=== PATIENT | female | born 1990 | race Caucasian/White ===

== ENCOUNTER 2019-01-07 12:15 | Inpatient (IN) | payer MEDICAID ==
[2019-01-07] MEDS: LACTATED RINGER'S 1,000 ML IV (17:43)
[2019-01-07] MEDS: AMPICILLIN 2 GM/NS (PMX) 100 ML IV (17:43)
[2019-01-07 17:48] LABS: ADD MAN DIFF? NO
[2019-01-07 17:54] LABS: BASOPHILS % 0.4 % (0.0-2.0); EOSINOPHILS % 0.3 % (0.0-7.0); HEMATOCRIT 38.6 % (37.0-47.0); HEMOGLOBIN 12.8 g/dl (12.0-16.0); LYMPHOCYTES # 2.8 10^3/ul (0.8-2.9); LYMPHOCYTES % 25.3 % (15.0-51.0); MEAN CORPUSCULAR HEMOGLOBIN 30.5 pg (29.0-33.0); MEAN CORPUSCULAR HGB CONC 33.2 g/dl (32.0-37.0); MEAN CORPUSCULAR VOLUME 91.9 fl (82.0-101.0); MEAN PLATELET VOLUME 10.2 fl (7.4-10.4); MONOCYTE # 0.6 10^3/ul (0.3-0.9); MONOCYTES % 5.9 % (0.0-11.0); NEUTROPHIL # 7.3 10^3/ul (1.6-7.5); NEUTROPHILS % 67.6 % (39.0-77.0); PLATELET COUNT 183 10^3/UL (140-415); RED CELL DISTRIBUTION WIDTH 17.3 % (11.5-14.5)
[2019-01-07 17:54] LABS: WHITE BLOOD COUNT 10.9 10^3/ul (4.8-10.8)
[2019-01-07] MEDS ORDERED: BUTORPHANOL 2 MG INJ IV (18:00)
[2019-01-07] MEDS ORDERED: CARBOPROST 250 MCG INJ IM (18:00)
[2019-01-07] MEDS ORDERED: OXYTOCIN 30 UNITS/LR 500 ML IV (18:00)
[2019-01-07] MEDS ORDERED: LIDOCAINE 1% (MPF) 30 ML INJ INJ (18:00)
[2019-01-07 18:14] LABS: INR 0.84; PROTIME 11.6 Sec (11.9-14.9); PT RATIO 0.9
[2019-01-07 18:15] LABS: PARTIAL THROMBOPLASTIN TIME 28.7 Sec (23.0-35.0)
[2019-01-07 19:20] LABS: HEPATITIS B SURFACE ANTIGEN NEGATIVE (NEGATIVE)
[2019-01-07] MEDS ORDERED: AMPICILLIN 1 GM/NS (PMX) 50 ML IV (21:00)
[2019-01-07 21:46] LABS: RAPID PLASMA REAGIN NONREACTIVE (NR)
[2019-01-08] MEDS: LACTATED RINGER'S 1,000 ML IV ×3 (02:08→16:03)
[2019-01-08] MEDS ORDERED: FENTAnyl 2MCG/ML-ROPIV 0.2% 100 ML (11:36)
[2019-01-08] MEDS ORDERED: OXYTOCIN 30 UNITS/LR 500 ML IV ×2 (12:30→22:00)
[2019-01-08] MEDS ORDERED: DIPHENHYDRAMINE 50 MG INJ IV (12:30)
[2019-01-08] MEDS ORDERED: NALOXONE (0.4 MG/ML) INJ IV (12:30)
[2019-01-08] MEDS: FENTAnyl 2MCG/ML-ROPIV 0.2% 100 ML BAG EPI (19:52)
[2019-01-08] MEDS: OXYTOCIN 30 UNITS/LR 500 ML IV ×2 (21:52→21:53)
[2019-01-08] MEDS: METHYLERGONOVINE 0.2 MG INJ IM (21:55)
[2019-01-08] MEDS: MISOPROSTOL 200 MCG TAB PR (21:56)
[2019-01-08] MEDS ORDERED: NACL 0.9% 3 ML SYG IV (22:00)
[2019-01-08] MEDS: MINERAL OIL LIGHT 10 ML VIAL TOP (22:00)
[2019-01-08] MEDS ORDERED: OXYCODONE/ASPIRIN (4.88/325) TAB PO ×2 (22:00)
[2019-01-08] MEDS ORDERED: METHYLERGONOVINE 0.2 MG INJ IM (22:00)
[2019-01-08] MEDS ORDERED: ONDANSETRON 4 MG INJ IV (22:00)
[2019-01-08] MEDS ORDERED: DIPHENHYDRAMINE 25 MG CAP PO (22:00)
[2019-01-08] MEDS ORDERED: CARBOPROST 250 MCG INJ IM (22:00)
[2019-01-08] MEDS ORDERED: MISOPROSTOL 200 MCG TAB PR (22:00)
[2019-01-08] MEDS: ONDANSETRON 4 MG INJ IV (22:25)
[2019-01-09] MEDS: IBUPROFEN 600 MG TAB PO ×5 (00:05→23:55)
[2019-01-09] MEDS: WITCH HAZEL/GLYCERIN PAD PR (03:08)
[2019-01-09] MEDS: BENZOCAINE 20% 56 ML SPRAY TOP (03:08)
[2019-01-09] MEDS: OXYTOCIN 30 UNITS/LR 500 ML IV (03:08)
[2019-01-09] MEDS: LANOLIN HPA 1 PKT TOP (03:09)
[2019-01-09 08:37] LABS: ADD MAN DIFF? NO
[2019-01-09 08:46] LABS: WHITE BLOOD COUNT 17.5 10^3/ul (4.8-10.8)
[2019-01-09 08:46] LABS: BASOPHILS % 0.2 % (0.0-2.0); EOSINOPHILS % 0.1 % (0.0-7.0); HEMATOCRIT 27.5 % (37.0-47.0); LYMPHOCYTES # 3.5 10^3/ul (0.8-2.9); MEAN CORPUSCULAR HEMOGLOBIN 30.2 pg (29.0-33.0); MEAN CORPUSCULAR HGB CONC 32.7 g/dl (32.0-37.0); MEAN CORPUSCULAR VOLUME 92.3 fl (82.0-101.0); MEAN PLATELET VOLUME 10.5 fl (7.4-10.4); MONOCYTE # 1.2 10^3/ul (0.3-0.9); MONOCYTES % 6.6 % (0.0-11.0); NEUTROPHIL # 12.7 10^3/ul (1.6-7.5); NEUTROPHILS % 72.5 % (39.0-77.0); PLATELET COUNT 141 10^3/UL (140-415); RED BLOOD COUNT 2.98 10^6/ul (4.20-5.40); RED CELL DISTRIBUTION WIDTH 17.4 % (11.5-14.5)
[2019-01-09] MEDS: SENNA/DOCUSATE NA (8.6MG/50MG) TAB PO ×2 (09:39→23:55)
[2019-01-10] MEDS: IBUPROFEN 600 MG TAB PO ×2 (05:38→11:53)
[2019-01-10 06:58] LABS: ADD MAN DIFF? NO
[2019-01-10 07:01] LABS: WHITE BLOOD COUNT 12.7 10^3/ul (4.8-10.8)
[2019-01-10 07:01] LABS: BASOPHILS % 0.2 % (0.0-2.0); EOSINOPHILS # 0.1 10^3/ul (0.0-0.5); EOSINOPHILS % 1.1 % (0.0-7.0); HEMATOCRIT 29.2 % (37.0-47.0); HEMOGLOBIN 9.3 g/dl (12.0-16.0); LYMPHOCYTES # 4.1 10^3/ul (0.8-2.9); LYMPHOCYTES % 32.7 % (15.0-51.0); MEAN CORPUSCULAR HEMOGLOBIN 30.3 pg (29.0-33.0); MEAN CORPUSCULAR HGB CONC 31.8 g/dl (32.0-37.0); MEAN CORPUSCULAR VOLUME 95.1 fl (82.0-101.0); MEAN PLATELET VOLUME 10.5 fl (7.4-10.4); MONOCYTE # 0.9 10^3/ul (0.3-0.9); MONOCYTES % 6.7 % (0.0-11.0); NEUTROPHIL # 7.4 10^3/ul (1.6-7.5); NEUTROPHILS % 58.4 % (39.0-77.0); PLATELET COUNT 154 10^3/UL (140-415); RED BLOOD COUNT 3.07 10^6/ul (4.20-5.40)
[2019-01-10] MEDS: SENNA/DOCUSATE NA (8.6MG/50MG) TAB PO (09:59)
== END 2019-01-10 17:15 | disposition home or self-care (01) | DRG 807 ==
LOC: OBT 12:15 → L-D 12:15 → OBT 15:19 → L-D 15:19 → PP1 01-08 23:34 → L-D 16:46
PROVIDERS: Obstetrics & Gynecology
PROC: 10E0XZZ Delivery of Products of Conception, External Approach (ICD-10-PCS; principal; 2019-01-07)
PROC: 0UQGXZZ Repair Vagina, External Approach (ICD-10-PCS; 2019-01-07)
DX: O71.4 Obstetric high vaginal laceration alone (principal); Z37.0 Single live birth; Z3A.37 37 weeks gestation of pregnancy
CPT/HCPCS: 62322; 76815; 76818; 85025; 85610; 85730; 86592; 86850; 86900; 86901; 87340